=== PATIENT | female | born 1955 | race Caucasian/White ===

== ENCOUNTER → 2016-12-24 | Outpatient (CLI) | payer OTHER ==
--- NOTE | 2016-12-25 12:36 | MAM ---
EXAM DESCRIPTION: 3D Screening BILATERAL : Digital Mammography. CLINICAL HISTORY: 61 years Female SCREENING . No complaints. Mother with breast cancer. Hysterectomy. Currently on HRT. Prior biopsy lumpectomy right breast and aspiration cyst left breast. COMPARISON: Baseline study at this facility.. Prior outside studies are not yet available. The studies have been requested for comparison. No prior reports available. TECHNIQUE: Bilateral CC and MLO projection full-field images, 3-D tomosynthesis digital mammographic technique. Also bilateral synthesized CC/ MLO full-field images. CAD not utilized. FINDINGS: The breast parenchymal density pattern is: Heterogeneously dense breast tissue, which may obscure small masses. No skin thickening or nipple retraction bilateral intramammary lymph nodes. Bilateral solitary microcalcifications. Biopsy site marker in the upper outer quadrant of the posterior third of the right breast. Focal asymmetry in the posterior third of the left breast at the 300 clock position. Similar density to the surrounding fibroglandular tissues. Not associated with microcalcifications. Focal asymmetry in the middle third of the right breast at the 830 clock position approximately 5-6 cm from the nipple. Same density as the surrounding fibroglandular tissues and not associated with microcalcifications. No suspicious microcalcifications bilaterally. IMPRESSION: BI-RADS CATEGORY: 0 - INCOMPLETE- Need prior studies for comparison or additional imaging evaluation. FOLLOW-UP: Compare to prior studies when available or recall for additional imaging: Bilateral 3-D breast tomosynthesis full field LM images. Targeted ultrasound bilaterally regions of interest. Written communication concerning the IMPRESSION and Follow-up, will be mailed to the patient and referring health care provider. Electronically signed by: Bert Puri MD 12/25/2016 12:35 PM CDT
== END ==
LOC: MAMMO 09:25
PROVIDERS: ATTEND Family Medicine
DX: Z12.31 Encounter for screening mammogram for malignant neoplasm of breast (principal)
CPT/HCPCS: 77063; G0202

== ENCOUNTER 2017-01-06 10:53 | Emergency (ER) | payer OTHER ==
--- NOTE | 2017-01-06 11:40 | ED.PDOC ---
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 LATER SHE NOTICED "A LUMP" IN THAT AREA. HAS REMAINED TENDER. PRESENTS TO ER FOR EVALUATION - History of Present Illness Timing/Duration: other - 2 DAYS Severity: mild Improving Factors: movement Allergies/Adverse Reactions: Allergies Levofloxacin [From Levaquin] Allergy (Verified 01/06/17 11:00) Other Musculoskeletal reaction Home Medications: Ambulatory Orders Acetaminophen W/ Codeine [Acetaminophen/Codeine #3 300-30 mg] 1 tab PO Q6H PRN 01/06/17 Bisoprolol & Hydrochlorothiazi [Ziac] 1 tab PO DAILY 01/06/17 Diazepam [Valium] 2.5 mg PO TID PRN 01/06/17 Estradiol 2 mg PO DAILY 01/06/17 Liothyronine Sodium [Cytomel] 150 mcg PO DAILY 01/06/17 Nitrofurantoin Macrocrystal [Macrodantin] 100 mg PO DAILY 01/06/17 Review of Systems - Review of Systems Constitutional: Denies: chills, fever Respiratory: States: no symptoms reported. Denies: wheezing Cardiology: Denies: chest pain, palpitations Gastrointestinal/Abdominal: Denies: nausea, vomiting Musculoskeletal: States: other - PAIN IN R SHOULDER Neurological: Denies: numbness, paresthesia Past Medical History (General) - Patient Medical History Hx Stroke: No Hx Congestive Heart Failure: No Hx Thyroid Disease: Yes Hx Diabetes: No Hx MRSA: No Surgical History: appendectomy, cholecystectomy, tonsillectomy, Hysterectomy, other - Vaccination History Hx Influenza Vaccination: Yes - 2016 Hx Pneumococcal Vaccination: No - Social History Hx Tobacco Use: No Hx Alcohol Use: No - Female History Patient is a Female of Child Bearing Age (10 -59 yrs old): No - partial hysterectomy Family Medical History - Family History Mother Hx Family Cancer: Yes - Breast Physical Exam - Physical Exam General Appearance: No apparent distress Eye Exam: bilateral normal Neck: non-tender, full range of motion, supple, normal inspection Cardiovascular/Chest: other - TTP OVER HEAD OF CLAVICLE. SLIGHT DISPLACEMENT ANT. TTP Peripheral Pulses: radial,right: 2+ Extremity: normal inspection, normal capillary refill, other - TTP R SHOULDER OVER BURSA, NO DEFORMITY, NVI, Neurologic: no motor/sensory deficits DTR: 2+: Biceps, left, Biceps, right, Triceps, left, Triceps, right Skin Exam: normal color, warm/dry Lymphatic: no adenopathy Progress - EKG/XRAY/CT XRAY: SHOULDER: DELMI - DELMI Departure - Departure Clinical Impression: Bursitis of right shoulder Dislocation of clavicle, right, closed Qualifiers: Encounter type: initial encounter Qualified Code(s): S43.101A - Unspecified dislocation of right acromioclavicular joint, initial encounter Time of Disposition: 12:04 Disposition: Discharge to Home or Self Care Condition: Good Departure Forms: ED Discharge - Pt. Copy, Patient Portal Self Enrollment, ED Discharge - Work Release Instructions: DI for Arm Pain, Bursitis Referrals: HARDIK KRAFT [Primary Care Provider] - 1-2 Weeks Home Medications: Ambulatory Orders Acetaminophen W/ Codeine [Acetaminophen/Codeine #3 300-30 mg] 1 tab PO Q6H PRN 01/06/17 Bisoprolol & Hydrochlorothiazi [Ziac] 1 tab PO DAILY 01/06/17 Diazepam [Valium] 2.5 mg PO TID PRN 01/06/17 Estradiol 2 mg PO DAILY 01/06/17 Liothyronine Sodium [Cytomel] 150 mcg PO DAILY 01/06/17 Nitrofurantoin Macrocrystal [Macrodantin] 100 mg PO DAILY 01/06/17 Additional Instructions: TAKE IBUPROFEN 800MG THREE TIMES DAILY WITH FOOD
--- NOTE | 2017-01-06 11:41 | RAD ---
EXAM DESCRIPTION: Shoulder,Right 2 or More Views CLINICAL HISTORY: injury, pain, decreased ROM COMPARISON: None Available. TECHNIQUE: Two views of the right shoulder. FINDINGS: There is good internal and external rotation. There is no fracture or bone lesion. There are no significant degenerative changes observed. IMPRESSION: 1. Normal shoulder. Electronically signed by: Ortiz Brink MD 01/06/2017 11:40 AM CDT
--- NOTE | 2017-01-06 11:41 | RAD ---
EXAM DESCRIPTION: Chest,2 Views CLINICAL HISTORY: injury, pain, decreased ROM COMPARISON: None TECHNIQUE: PA/lateral FINDINGS: There is no cardiac or pulmonary abnormality. The lungs are clear. There is no effusion. IMPRESSION: 1. Normal two-view chest. Electronically signed by: Ortiz Brink MD 01/06/2017 11:39 AM CDT
[2017-01-06 12:44] VITALS: BP 129/80; TEMP 98.2; O2SAT 96
== END 2017-01-06 12:45 | disposition home or self-care (01) ==
LOC: ER 10:53
DX: S43.101A Unspecified dislocation of right acromioclavicular joint, initial encounter (principal); E07.9 Disorder of thyroid, unspecified; Z79.899 Other long term (current) drug therapy; Z88.3 Allergy status to other anti-infective agents; X58.XXXA Exposure to other specified factors, initial encounter; Y92.239 Unspecified place in hospital as the place of occurrence of the external cause; Y99.0 Civilian activity done for income or pay

== ENCOUNTER → 2017-01-07 | Outpatient (CLI) | payer OTHER ==
--- NOTE | 2017-01-08 13:22 | CT ---
EXAM DESCRIPTION: Chest w/o Contrast CLINICAL HISTORY: 61 years, Female, DISLOCATION OF STERNOCLAVICULAR JOINT COMPARISON: None TECHNIQUE: Thin-section noncontrast axial CT images are obtained according to our protocol. Reconstructed MPR images are created and reviewed as well. This exam was performed according to our departmental dose-optimization program, which includes automated exposure control, adjustment of the mA and/or kV according to patient size and/or use of iterative reconstruction technique. FINDINGS: Noncontrast imaging of the chest demonstrates a normal appearance of the thoracic inlet and superior mediastinum. Axial and coronal imaging demonstrates no evidence of cyst sternoclavicular dislocation. Moderate degenerative changes at the acromioclavicular joints bilaterally is apparent. Mild basilar at atelectatic or fibrotic lung disease is present bilaterally with no focal masses. No effusions or infiltrates are seen. Mild cardiomegaly is evident without pericardial effusion or significant coronary calcification. Minimal degenerative change in the dorsal spine without destructive process or compression deformity is noted. The upper abdomen demonstrates surgical absence of the gallbladder in the region of the pancreas and adrenal glands and liver and spleen are unremarkable on noncontrast imaging. The sternum and sternal region is normal in appearance. IMPRESSION: 1. Normal alignment and normal appearance of the sternoclavicular joints with moderate AC joint arthropathy bilaterally. 2. Mild linear scarring or atelectasis in each lung base and mild cardiomegaly. 3. Noncontrast chest CT is otherwise unremarkable. Electronically signed by: Rivas Gale MD 01/08/2017 1:21 PM CDT
== END | disposition home or self-care (01) ==
LOC: CT 10:04
PROVIDERS: ATTEND Orthopaedic Surgery
DX: S43.204A Unspecified dislocation of right sternoclavicular joint, initial encounter (principal)

== ENCOUNTER → 2017-02-09 | Outpatient (CLI) | payer OTHER ==
--- NOTE | 2017-02-10 14:31 | MAM ---
EXAM DESCRIPTION: 3D Diagnostic, Right: Digital Mammography CLINICAL HISTORY: 61 yearsFemaleABNORMAL MAMMOGRAM . New Focal asymmetry in the middle third of the right breast at the 830 clock position.. COMPARISON: Bilateral 3-D breast tomosynthesis screening study 12/24/2016.. Targeted right breast ultrasound following this examination. Report from prior examination also reviewed. TECHNIQUE: Right breast LM projection full-field images, 3-D tomosynthesis digital mammographic technique. Also right breast synthesized LM full-field images. CAD not utilized. FINDINGS: The breast parenchymal density pattern is: Heterogeneously dense breast tissue, which may obscure small masses. No skin thickening or nipple retraction . The full-field LM tomosynthesis images of the right breast show no focal asymmetry mass density or abnormal calcifications in the region of interest. ULTRASOUND: Scanning of the right breast at the 300 clock position 4 cm from the nipple and the 700-900 clock position 5 to 6 cm from the nipple. Heterogeneous fibroglandular and fatty tissues. No skin thickening at either location. No discrete solid mass or cyst. No large calcification or parenchymal edema. IMPRESSION: BI-RADS CATEGORY: 2 - BENIGN FINDINGS. FOLLOW UP: Routine digital bilateral screening, one year interval from December 2016. The FINDINGS and the follow-up plan were reviewed in person with the patient after the examination. Written communication explaining the IMPRESSION and follow-up will be mailed to the patient and referring care provider. According to the [employer], yearly mammograms are recommended starting at age 40 and continuing as long as a woman is in good health. Any breast change noted on a breast self-exam should be reported promptly to the patient's healthcare provider. Breast MRI is recommended for women with an approximately 20-25% or greater lifetime risk of breast cancer, including women with a strong family history of breast or ovarian cancer and women who have been treated for Hodgkin's disease. A negative mammographic report should not delay tissue diagnosis in patients with significant clinical history or physical findings. Extremely dense breast tissue limits the sensitivity of digital mammography. Electronically signed by: Bert Puri MD 02/10/2017 2:30 PM [facility]
--- NOTE | 2017-02-10 14:32 | US ---
EXAM DESCRIPTION: Breast,Right: Ultrasound CLINICAL HISTORY: 61 yearsFemaleABNL SCREEN. New focal asymmetry in the right breast compared to the prior study. COMPARISON: Digital 3-D diagnostic right breast mammogram on the same visit. Mammogram screening bilaterally 12/24/2016. TECHNIQUE: Transcutaneous scanning of the right breast utilizing two-dimensional and Doppler modes. Scanning performed by the pen maker and Dr. Puri. FINDINGS: Scanning of the right breast at the 300 clock position 4 cm from the nipple and the 700-900 clock position 5 to 6 cm from the nipple. Heterogeneous fibroglandular and fatty tissues. No skin thickening at either location. No discrete solid mass or cyst. No large calcification or parenchymal edema. IMPRESSION: 1. Bi-Rads Category 2: Benign. 2. Please refer to digital 3-D diagnostic right breast mammogram examination and report on this visit. The FINDINGS and the follow-up plan were reviewed in person with the patient after the examination. Written communication explaining the IMPRESSION and follow-up will be mailed to the patient and referring care provider. Electronically signed by: Bert Puri MD 02/10/2017 2:[address] [facility]
== END ==
LOC: MAMMO 11:40
PROVIDERS: ATTEND Family Medicine
DX: R92.8 Other abnormal and inconclusive findings on diagnostic imaging of breast (principal)
CPT/HCPCS: 76641; G0206; G0279

== ENCOUNTER → 2017-03-05 | Outpatient (CLI) | payer OTHER | END | disposition home or self-care (01) | LOC: YCFC.O 15:25 | PROVIDERS: ATTEND Nurse Practitioner Family | DX: R50.9 Fever, unspecified (principal) ==

== ENCOUNTER → 2017-03-18 | Outpatient (CLI) | payer OTHER ==
--- NOTE | 2017-03-19 10:30 | RAD ---
History: Hematuria. KUB: Two-part supine abdomen film is obtained. Right upper quadrant surgical clips from presumed cholecystectomy. No unusual calcific or soft tissue density. Bowel gas pattern is normal. Numerous phleboliths within the pelvis. IMPRESSION: Negative KUB. Electronically signed by: Bozena Akins MD 03/19/2017 10:28 AM [facility] Workstation: [facility]
== END | disposition home or self-care (01) ==
LOC: YCFC.O 10:16
PROVIDERS: ATTEND Nurse Practitioner Family
DX: R31.9 Hematuria, unspecified (principal)

== ENCOUNTER → 2017-04-08 | Outpatient (CLI) | payer OTHER | LOC: LAB.O 14:27 | DX: R31.9 Hematuria, unspecified (principal); R35.0 Frequency of micturition ==

== ENCOUNTER → 2019-12-26 | Outpatient (CLI) | payer OTHER | LOC: GMA MATASK 14:49 | PROVIDERS: ATTEND Family Medicine | DX: E03.9 Hypothyroidism, unspecified (principal) ==

== ENCOUNTER → 2020-01-16 | Outpatient (CLI) | payer OTHER | LOC: GMA MATASK 14:43 | PROVIDERS: ATTEND Family Medicine | DX: R30.0 Dysuria (principal) ==